=== PATIENT | male | born 1950 | race Caucasian/White ===

== ENCOUNTER → 2017-11-25 | Outpatient (CLI) | payer OTHER ==
[~2017-11-25] MED LIST: ARTH650T6 PO; ATOR20TA15 PO; BIOF1TAB PO; CITA10TA4 PO; FINA5TAB2 PO; FISH100020 PO; LOSA100T PO; MULT-65 PO; OMEP40CA2 PO
[2017-11-25 11:39] LABS: AUTOMATED NEUTROPHIL # 4.2 TH/MM3 (1.8-7.7); BASOPHIL % 0.2 % (0.0-2.0); EOSINOPHIL # 0.2 TH/MM3 (0-0.4); EOSINOPHIL % 3.5 % (0.0-4.0); HEMATOCRIT 39.7 % (39.0-51.0); HEMOGLOBIN 13.2 GM/DL (13.0-17.0); LYMPH % 18.1 % (9.0-44.0); LYMPHOCYTE # 1.1 TH/MM3 (1.0-4.8); MEAN CELL VOLUME 87.5 FL (80.0-100.0); MEAN CORPUSCULAR HEMOGLOBIN 29.1 PG (27.0-34.0); MEAN CORPUSCULAR HGB CONC 33.3 % (32.0-36.0); MEAN PLATELET VOLUME 7.8 FL (7.0-11.0); MONO % 9.4 % (0.0-8.0); MONOCYTE # 0.6 TH/MM3 (0-0.9); NEUT % 68.8 % (16.0-70.0); PLATELET COUNT 265 TH/MM3 (150-450); RED BLOOD COUNT 4.54 MIL/MM3 (4.50-5.90); RED CELL DISTRIBUTION WIDTH 15.6 % (11.6-17.2); WHITE BLOOD COUNT 6.1 TH/MM3 (4.0-11.0)
[2017-11-25 11:41] LABS: BILIRUBIN, URINE NEG (NEG); BLOOD, URINE NEG (NEG); GLUCOSE,URINE NEG (NEG); HYALINE CAST, URINE 2 /lpf (RARE); KETONE, URINE NEG (NEG); MUCUS URINE FEW /lpf (OCC); NITRITE,URINE NEG (NEG); PH, URINE 5.5 (5.0-8.5); URIC ACID CRYSTALS, URINE FEW /hpf; URINE COLOR YELLOW (YELLW/STRAW); URINE LEUKOCYTE ESTERASE NEG (NEG)
[2017-11-25 11:44] LABS: PROTHROMBIN TIME - PATIENT 10.4 SEC (9.8-11.6)
--- NOTE | 2017-11-25 11:52 | EKG ---
Date Performed: 11/25/2017 Time Performed: 11:08:25 PTAGE: 67 years EKG: Sinus rhythm NORMAL ECG NO PREVIOUS TRACING DOCTOR: Denys Velasco Interpretating Date/Time 11/25/2017 11:51:34
[2017-11-25 12:07] LABS: ALBUMIN 3.8 GM/DL (3.4-5.0); AST (GOT) 18 U/L (15-37); BICARBONATE 27.7 MEQ/L (21.0-32.0); BLOOD UREA NITROGEN 15 MG/DL (7-18); CALCIUM 9.5 MG/DL (8.5-10.1); CHLORIDE 106 MEQ/L (98-107); CREATININE 0.68 MG/DL (0.60-1.30); GLOMERULAR FILTRATION RATE 117 ML/MIN (>89); GLUCOSE,FASTING 92 MG/DL (74-99); SODIUM (NA) 141 MEQ/L (136-145)
[2017-11-25 12:08] LABS: ALT (GPT) 30 U/L (12-78)
--- NOTE | 2017-11-25 12:08 | RADRPT ---
EXAM DATE/TIME: 11/25/2017 11:40 [place] COMPARISON: No previous studies available for comparison. INDICATIONS : Evaluate for pneumonia, pneumothorax or communicable disease. Preop chest for sigmoid colectomy, colo stomy closure and ileostomy on 11/27/17 MEDICAL HISTORY : Hyperparathyroidism. SURGICAL HISTORY : Colostomy. ENCOUNTER: Initial ACUITY: 1 day PAIN SCORE: 0/10 LOCATION: Bilateral chest FINDINGS: PA and lateral views of the chest is obtained. Moderate-sized hiatal hernia. Scoliosis. Left basilar atelectasis. The cardiomediastinal contours are unremarkable. Osseous structures are intact. CONCLUSION: 1. Left basilar atelectasis. 2. Moderate-sized hiatal hernia. Richard Erickson MD on November 25, 2017 at 12:05 Board Certified Radiologist. This report was verified electronically.
[2017-11-25 12:10] LABS: ALKALINE PHOSPHATASE 98 U/L (45-117); TOTAL BILIRUBIN ADULT 0.5 MG/DL (0.2-1.0); TOTAL PROTEIN 7.7 GM/DL (6.4-8.2)
== END ==
LOC: CPRE 10:39
PROVIDERS: ATTEND Colon & Rectal Surgery
DX: Z01.812 Encounter for preprocedural laboratory examination (principal); Z01.811 Encounter for preprocedural respiratory examination; Z01.810 Encounter for preprocedural cardiovascular examination; K94.03 Colostomy malfunction
CPT/HCPCS: 36415; 71046; 80053; 81001; 85025; 85610; 85730; 86850; 86900; 86901; 93005

== ENCOUNTER 2017-11-27 09:59 | Inpatient (IN) | payer OTHER, MEDICARE ==
[~2017-11-27] VITALS: Ht 175.3 cm; Wt 71.9 kg
[2017-11-27] MEDS ORDERED: POVIDONE IODINE 5% (ANTISEPSIS KIT) 4 APPLICATIONS EACH NARE PRN (10:30)
[2017-11-27] MEDS ORDERED: SODIUM CHLORID 0.9% 500 ML IV PRN (10:30)
[2017-11-27] MEDS ORDERED: LACTATED RINGER'S 1000 ML IV PRN (10:30)
[2017-11-27] MEDS ORDERED: INSULIN HUMAN REGULAR 1,000 UNITS/10 ML VIAL SQ PRN (10:30)
[2017-11-27] MEDS ORDERED: METOPROLOL TARTRATE 25 MG TAB PO PRN (10:30)
[2017-11-27] MEDS ORDERED: CHLORHEXIDINE GLUCONATE 2 % 1 PACK (2 CLOTHS) TOPICAL PRN (10:30)
[2017-11-27] MEDS ORDERED: ALVIMOPAN 12 MG CAPSULE - On Call PO SCH (10:30)
[2017-11-27] MEDS ORDERED: METRONIDAZOLE 500 MG/100 ML ISONTONIC SOLN IV SCH (10:45)
[2017-11-27] MEDS ORDERED: ceFAZolin 1,000 MG/NS 100 ML IV SCH ×2 (10:45)
[2017-11-27] MEDS ORDERED: DEXT 5%-NACL 0.9% 1000 ML INJ 1,000 ML IV SCH (10:45)
[2017-11-27] MEDS ORDERED: ceFAZolin INJ 1,000 MG VIAL ONE (10:49)
[2017-11-27] MEDS ORDERED: BUPIVACAINE HCL PF 0.5% 30 ML VIAL ONE (12:00)
--- NOTE | 2017-11-27 14:03 | MP ---
cc: James Hampton DO DATE OF OPERATION: 11/27/2017 DATE OF PROCEDURE: 11/27/2017 PREOPERATIVE DIAGNOSIS: Diverticular disease. POSTOPERATIVE DIAGNOSIS: Diverticular disease. PROCEDURE PERFORMED: Cystoscopy, bilateral ureteral catheter placement. SURGEON: James Hampton DO ANESTHESIA: General endotracheal tube. FLUIDS: 500 mL crystalloid. ESTIMATED BLOOD LOSS: None. COMPLICATIONS: None. He tolerated the procedure well. DRAINS: Two bilateral 5-Botswanan open-ended catheters and a 16-Botswanan Boland. DESCRIPTION OF PROCEDURE: Request was made for bilateral ureteral catheter insertion per Dr. Serna. The patient was brought to the operating room and placed in the dorsal lithotomy position. He was prepped and draped in the usual sterile fashion, received preprocedure antibiotics, general endotracheal tube anesthesia was administered and he was placed in the dorsal lithotomy position. A 22-Botswanan cystoscope was inserted in the bladder. Large coapting prostatic lobes were identified. There was some sand within the bladder consistent with possible history of outlet obstruction. Left ureteral orifice was identified, a 5-B[place]wanan catheter was inserted into the left ureteral orifice without difficulty. A 0.35 Sensor wire was then passed through the open-ended catheter up into the kidney with easy passage of the open-ended catheter. This was again repeated on the right side without difficulty. A Boland was inserted and the catheters were secured to the Boland. He tolerated the procedure well. James Hampton DO SWT/KD , 01:46 PM , 02:02 PM
[2017-11-27] MEDS ORDERED: SUGAMMADEX SODIUM 200 MG/2 ML VIAL IV PUSH ONE (15:41)
[2017-11-27] MEDS ORDERED: POTASSIUM CHLOR 40 MEQ PREMIX 100 ML IV PRN (16:00)
[2017-11-27] MEDS ORDERED: Post-op Orders (for Pharmacy) XX ONE (16:00)
[2017-11-27] MEDS ORDERED: BENZOCAINE 6 MG/MENTHOL 10 MG LOZENGE BUCCAL PRN (16:00)
[2017-11-27] MEDS ORDERED: POTASSIUM CHLOR 20 MEQ PREMIX 100 ML IV PRN (16:00)
[2017-11-27] MEDS ORDERED: ACETAMINOPHEN/HYDROcodone 325 MG/5 MG TAB PO PRN ×2 (16:00)
[2017-11-27] MEDS ORDERED: ENALAPRILAT 1.25 MG/ML VIAL IV PUSH PRN (16:00)
[2017-11-27] MEDS: PCA - TOTAL MG MORPHINE DELIVERED PER SHIFT SCH ×2 (16:00→21:15)
[2017-11-27] MEDS ORDERED: SODIUM CHLORIDE 0.9% FLUSH 10 ML FLUSH IV FLUSH PRN (16:00)
[2017-11-27] MEDS ORDERED: NALOXONE HCL 0.4 MG/ML AMP IV PUSH PRN (16:00)
[2017-11-27] MEDS ORDERED: *MEPERIDINE 25 MG INJ VIAL PERIprocedural Use ONLY ONE (16:10)
[2017-11-27] MEDS ORDERED: MIDAZOLAM HCL 2 MG/2 ML VIAL ONE (16:13)
[2017-11-27] MEDS ORDERED: DO NOT ADM ANY ANTICOAGULANT DRUGS PRN (16:15)
[2017-11-27] MEDS ORDERED: MORPHINE SULFATE 8 MG/ML INJ ONE (16:30)
[2017-11-27] MEDS: MORPHINE SULFATE 30 MG/30 ML PCA IV SCH (16:40)
[2017-11-27] MEDS: D5-LR + KCL 20 MEQ INJ 1,000 ML IV SCH ×3 (16:40→21:19)
[2017-11-27] MEDS ORDERED: *morphine SULFATE 4 MG/ML PERIprocedure ONLY ONE ×2 (17:00→18:01)
--- NOTE | 2017-11-27 17:07 | MP ---
cc: Cristofer Merritt MD, Renee Donohoe,Shaun BRAMBILA DATE OF OPERATION: 11/27/2017 DATE OF PROCEDURE: 11/27/2017 PREOPERATIVE DIAGNOSIS: Colostomy, Bam pouch. POSTOPERATIVE DIAGNOSIS: Colostomy, Bam pouch. PROCEDURE PERFORMED: Rectosigmoidectomy with closure of colostomy with low anterior resection. ANESTHESIA: General endotracheal. SURGEON: Cristofer Merritt MD COLLECTIONS MANAGER: Dr. Leslie. ESTIMATED BLOOD LOSS: 100 mL. OPERATING TIME: 2 hours and 10 minutes. OPERATIVE FINDINGS: This patient underwent an emergency colectomy for a sigmoid volvulus about 4 months ago in [place]. He tolerated the procedure well, but developed 2 small wounds infections, 1 near his colostomy, the other in the upper part of his abdomen. Other than that, he came to [place] for closure of his colostomy and Bam pouch. His surgery was done by Dr. Rodriguez and Dr. De La Rosa in [place]. Exploration of the abdominal cavity revealed that the liver was palpably normal, as was remainder of the colon and the small bowel. The cecum was quite high in the right upper quadrant and some of the terminal ileum was stuck in the pelvis, but was able to be dissected free of that. There was a small portion of the mid portion of the ileum that had a serosal split about 3 cm long and this was closed longitudinally with interrupted seromuscular Vicryl sutures. This was a fairly good length Bam pouch, probably 18 cm long. The superior hemorrhoidal vessels had not been taken and a portion of the rectum and sigmoid at of the Bam pouch was resected and the distal portion of the sigmoid was resected. The descending colon and sigmoid was mobilized up to but not including the splenic flexure. A full left colectomy was not needed. A colorectal anastomosis was done with an Ethicon 29 EEA stapling device. OPERATIVE TECHNIQUE: The patient was placed on the table in the supine position. After adequate general endotracheal anesthesia, the legs were then placed in the perineal lithotomy position and the abdomen and perineum were prepped and draped in the usual manner after closing the mucosa of the colostomy with a running 3-0 Vicryl suture. The patient was prepped and draped in the usual manner and a midline incision was made from the xiphoid to the pubis in his previous midline incision and taken down through the linea alba and the peritoneal cavity was entered with the above-mentioned findings. There were adhesions to the anterior abdominal wall, both of small bowel and omentum, and these were taken down with electrocautery. The interloop small bowel adhesions were also divided. Next, our attention was turned to the Bam pouch, rectal stump. There was a Prolene suture present which was trimmed off. The bulk of the mesentery, including the inferior mesenteric artery and superior hemorrhoidal vessels, were all intact and only the sigmoidal branches had been divided. Dr. James Hampton had previously placed bilateral ureteral catheters in both ureters were identified and protected at all times. The sigmoid colostomy was taken down with a transverse elliptical incision around the stoma and subcutaneous tissue and the colostomy was mobilized from the abdominal wall. Next, the sigmoid and descending colon was mobilized along its peritoneal reflection up to but not including the splenic flexure. The superior hemorrhoidal vessels were taken doubly clamping, ligating. The retrorectal space was entered and dissection was taken posteriorly to the pelvic floor. Lateral pelvic peritoneum was incised bilaterally down to the cul-de-sac and then the cul-de-sac was divided, dividing the peritoneum anteriorly and mobilizing the anterior rectum to allow passage of the EEA instrument easily. Once this was done, the mesorectum was clamped, cut, and ligated with 0 Vicryl ligatures and the upper rectum was identified and cleared of the mesorectum. A right angle Zafar clamp was then used and the bowel was divided successively and then placing a 2-0 Prolene sewn pursestring in the rectal stump. Once this piece of bowel was divided, the specimen was removed from the table. Next, our attention was turned to the sigmoid colon and because the quality of the colon was good without any diverticular disease, although the size was somewhat small, we elected to use the sigmoid colon for the anastomosis rather than mobilizing the splenic flexure and the transverse colon. The mesentery of the sigmoid colon just proximal to the colostomy was clamped, cut, and ligated and the sigmoid colon was cleared and another 2-0 Prolene pursestring was placed in the sigmoid colon. The anvil of the 29 Ethicon EEA instrument was placed in the proximal bowel and the pursestring was tied. Dr. Leslie then went below and placed the instrument transanally and the distal pursestring was tied and the instrument was connected, closed and fired, creating the circular anastomosis. There was no tension on the anastomosis and the blood supply was excellent. Dr. Leslie then did proctosigmoidoscopy examination, insufflating air into the rectum with saline solution in the pelvis. Initially, there were a few air bubbles but then there were no air bubbles under moderate air tension. The anastomosis was inspected carefully circumferentially and was intact. There was no tension on the anastomosis and the blood supply was excellent. Once this was done, the pelvis and abdominal cavity was irrigated thoroughly with approximately 2 liters of saline solution and aspirated dry. A 10 flat Sanju drain was placed in the retrorectal space and brought out through a right lower quadrant separate stab wound. The small bowel was replaced into the abdominal cavity in an design director manner and then the fascial edges were mobilized because of the previous incision and fibrosis and a large calcification in the upper abdominal wound was excised with electrocautery. Once this was done, we closed the colostomy site, closing the posterior rectus sheath vertically with a simple running single stranded #1 PDS and then the anterior rectus sheath was closed with a single strand #1 PDS as well again vertically. Next, the midline abdominal incision was closed with a double stranded #1 PDS from the top and the bottom and then these were tied together. Once this was done, the subcutaneous tissue of both wounds was irrigated thoroughly with saline solution and aspirated dry and the skin was closed with skin hanna since he has had 2 previous areas of wound infection. Dressings were applied. Sponge, needle and instrument counts were reported as correct. The estimated blood loss was 100 mL. Operating time was 2 hours and 10 minutes. MD MEIR Morales/NAVID , 04:19 PM , 05:06 PM
[2017-11-27 17:36] LABS: BASOPHIL % 0.2 % (0.0-2.0); EOSINOPHIL % 0.1 % (0.0-4.0); HEMATOCRIT 37.6 % (39.0-51.0); HEMOGLOBIN 12.3 GM/DL (13.0-17.0); LYMPH % 7.4 % (9.0-44.0); LYMPHOCYTE # 1.2 TH/MM3 (1.0-4.8); MEAN CELL VOLUME 87.9 FL (80.0-100.0); MEAN CORPUSCULAR HEMOGLOBIN 28.7 PG (27.0-34.0); MEAN CORPUSCULAR HGB CONC 32.6 % (32.0-36.0); MEAN PLATELET VOLUME 7.9 FL (7.0-11.0); MONO % 6.3 % (0.0-8.0); PLATELET COUNT 293 TH/MM3 (150-450); RED BLOOD COUNT 4.28 MIL/MM3 (4.50-5.90); RED CELL DISTRIBUTION WIDTH 15.8 % (11.6-17.2); WHITE BLOOD COUNT 16.2 TH/MM3 (4.0-11.0)
[2017-11-27 17:53] LABS: BICARBONATE 20.2 MEQ/L (21.0-32.0); CALCIUM 8.8 MG/DL (8.5-10.1); CREATININE 0.62 MG/DL (0.60-1.30)
[2017-11-27] MEDS: METOCLOPRAMIDE HCL 10 MG/2 ML VIAL IVS SCH (18:07)
[2017-11-27 20:30] VITALS: BP 141/72; PULSE 97; PULSE 98; RESP 16; TEMP 98; O2SAT 93
[2017-11-27] MEDS: ceFAZolin 2 GM PREMIX 50 ML IV SCH (21:00)
[2017-11-27] MEDS ORDERED: ZOLPIDEM TARTRATE 5 MG TAB PO PRN (21:00)
[2017-11-27] MEDS: SODIUM CHLORIDE 0.9% FLUSH 10 ML FLUSH IV FLUSH SCH (21:32)
[2017-11-27] MEDS: ATORVASTATIN 20 MG TAB PO SCH (21:32)
[2017-11-27] MEDS: metroNIDAZOLE 500 MG INJ 100 ML IV SCH (21:32)
[2017-11-28] VITALS (16 sets, daily range): BP systolic 129–164; BP diastolic 70–82; PULSE 90–104; RESP 16–18; TEMP 97.4–99.1; O2SAT 94–97
[2017-11-28] MEDS: D5-LR + KCL 20 MEQ INJ 1,000 ML IV SCH ×3 (04:13→20:26)
[2017-11-28] MEDS: ceFAZolin 2 GM PREMIX 50 ML IV SCH ×2 (05:00→11:31)
[2017-11-28] MEDS: metroNIDAZOLE 500 MG INJ 100 ML IV SCH ×2 (05:26→12:17)
[2017-11-28] MEDS: PCA - TOTAL MG MORPHINE DELIVERED PER SHIFT SCH ×4 (05:26→20:35)
[2017-11-28] MEDS: METOCLOPRAMIDE HCL 10 MG/2 ML VIAL IVS SCH ×5 (05:27→23:28)
[2017-11-28] MEDS: ALVIMOPAN 12 MG CAPSULE - Post-op dosing PO SCH ×2 (08:43→20:21)
[2017-11-28] MEDS: PANTOPRAZOLE SODIUM 40 MG VIAL IVP SCH (08:43)
[2017-11-28] MEDS: CITALOPRAM HYDROBROMIDE 20 MG TAB PO SCH (08:44)
[2017-11-28] MEDS: LOSARTAN 50 MG TAB PO SCH (08:44)
[2017-11-28] MEDS: FINASTERIDE 5 MG TAB PO SCH (08:45)
[2017-11-28 10:29] LABS: AUTOMATED NEUTROPHIL # 10.1 TH/MM3 (1.8-7.7); BASOPHIL % 0.3 % (0.0-2.0); EOSINOPHIL % 0.1 % (0.0-4.0); HEMATOCRIT 36.1 % (39.0-51.0); MEAN CORPUSCULAR HEMOGLOBIN 28.6 PG (27.0-34.0); MEAN CORPUSCULAR HGB CONC 33.3 % (32.0-36.0); MEAN PLATELET VOLUME 7.6 FL (7.0-11.0); MONO % 12.2 % (0.0-8.0); MONOCYTE # 1.5 TH/MM3 (0-0.9); NEUT % 79.4 % (16.0-70.0); PLATELET COUNT 317 TH/MM3 (150-450); RED BLOOD COUNT 4.19 MIL/MM3 (4.50-5.90); RED CELL DISTRIBUTION WIDTH 15.8 % (11.6-17.2); WHITE BLOOD COUNT 12.7 TH/MM3 (4.0-11.0)
[2017-11-28 10:51] LABS: BICARBONATE 25.7 MEQ/L (21.0-32.0); CALCIUM 8.8 MG/DL (8.5-10.1); CREATININE 0.63 MG/DL (0.60-1.30)
[2017-11-28] MEDS ORDERED: HEPARIN SODIUM - SQ 10,000 UNITS/ML VIAL SQ SCH (15:00)
--- NOTE | 2017-11-28 16:25 | HHI.PR ---
Subjective Remarks No N or V. No BMs. Some pain. Objective Vital Signs Date Time Temp Pulse Resp B/P (MAP) Pulse Ox O2 Delivery O2 Flow Rate FiO2 11/28/17 11:00 98.5 98 16 133/70 (91) 97 11/28/17 08:05 98.8 92 18 129/72 (91) 95 11/28/17 07:15 Nasal Cannula 3.00 11/28/17 05:26 18 11/28/17 04:00 97.4 92 18 139/76 (97) 94 11/28/17 00:00 97.7 97 16 158/82 (107) 94 11/28/17 00:00 98 11/27/17 20:45 97 16 144/73 (96) 95 Nasal Cannula 2 11/27/17 20:30 Nasal Cannula 3.00 11/27/17 20:30 93 Nasal Cannula 3.00 11/27/17 20:30 97 11/27/17 20:30 16 11/27/17 20:30 98.0 98 16 141/72 (95) 93 11/27/17 19:30 97 16 128/72 (90) 96 Nasal Cannula 2 11/27/17 18:30 97 16 121/71 (88) 96 Nasal Cannula 2 11/27/17 18:00 95 16 137/74 (95) 95 Nasal Cannula 2 11/27/17 17:30 98.0 92 18 131/63 (85) 95 Nasal Cannula 2 11/27/17 17:15 90 18 138/63 (88) 97 Nasal Cannula 2 11/27/17 17:00 87 19 141/70 (93) 97 Nasal Cannula 2 11/27/17 16:45 86 18 143/67 (92) 95 Nasal Cannula 2 11/27/17 16:40 18 11/27/17 16:30 89 19 165/76 (105) 96 Nasal Cannula 2 I/O 11/27/17 11/27/17 11/27/17 11/28/17 11/28/17 11/28/17 07:00 15:00 23:00 07:00 15:00 23:00 Intake Total 4450 ml 1342 ml 150 ml Output Total 915 ml 800 ml Balance 3535 ml 542 ml 150 ml Intake Oral 30 ml IV Total 2150 ml 1312 ml 150 ml Other 2300 ml Output Urine Total 625 ml 750 ml Drainage Total 190 ml 50 ml Estimated Blood Loss 100 ml # Bowel Movements 0 Result Diagram: 11/28/17 1009 11/28/17 1009 Objective Remarks VS-S Abd: flat,dressings dry I&Os and labs OK Assessment and Plan Assessment and Plan Stble POD#[address] [place] [address] D/C Telemetry D/C ureteral catheter D/C serrato tomorrow Remove dressing tomorrow D/C DATA CONVERSION ANALYST tomorrow. Cristofer Merritt MD Nov 28, 2017 16:25
[2017-11-28] MEDS: ATORVASTATIN 20 MG TAB PO SCH (20:21)
[2017-11-28] MEDS: SODIUM CHLORIDE 0.9% FLUSH 10 ML FLUSH IV FLUSH SCH (20:29)
[2017-11-28] MEDS: MORPHINE SULFATE 30 MG/30 ML PCA IV SCH (20:31)
[2017-11-28] MEDS ORDERED: ALVIMOPAN 12 MG CAPSULE PO SCH (21:00)
[2017-11-29] MEDS: D5-LR + KCL 20 MEQ INJ 1,000 ML IV SCH ×4 (02:53→23:47)
[2017-11-29 04:00] VITALS: BP 176/96; PULSE 98; RESP 20; TEMP 98.9; O2SAT 94
[2017-11-29 05:27] LABS: AUTOMATED NEUTROPHIL # 11.3 TH/MM3 (1.8-7.7); BASOPHIL % 0.2 % (0.0-2.0); HEMATOCRIT 34.1 % (39.0-51.0); HEMOGLOBIN 11.5 GM/DL (13.0-17.0); LYMPHOCYTE # 0.8 TH/MM3 (1.0-4.8); MEAN CELL VOLUME 86.1 FL (80.0-100.0); MEAN CORPUSCULAR HGB CONC 33.7 % (32.0-36.0); MEAN PLATELET VOLUME 7.4 FL (7.0-11.0); MONO % 11.4 % (0.0-8.0); MONOCYTE # 1.6 TH/MM3 (0-0.9); NEUT % 82.4 % (16.0-70.0); PLATELET COUNT 288 TH/MM3 (150-450); RED BLOOD COUNT 3.96 MIL/MM3 (4.50-5.90); WHITE BLOOD COUNT 13.7 TH/MM3 (4.0-11.0)
[2017-11-29 05:40] LABS: BICARBONATE 28.8 MEQ/L (21.0-32.0); CALCIUM 8.7 MG/DL (8.5-10.1); CREATININE 0.58 MG/DL (0.60-1.30)
[2017-11-29] MEDS: METOCLOPRAMIDE HCL 10 MG/2 ML VIAL IVS SCH ×4 (06:40→23:47)
[2017-11-29] MEDS: PCA - TOTAL MG MORPHINE DELIVERED PER SHIFT SCH ×3 (06:48→20:45)
[2017-11-29 08:00] VITALS: BP 158/85; PULSE 96; RESP 17; TEMP 98.2; O2SAT 93
[2017-11-29] MEDS: LOSARTAN 50 MG TAB PO SCH (08:57)
[2017-11-29] MEDS: FINASTERIDE 5 MG TAB PO SCH (08:57)
[2017-11-29] MEDS: ALVIMOPAN 12 MG CAPSULE - Post-op dosing PO SCH ×2 (08:57→20:44)
[2017-11-29] MEDS: PANTOPRAZOLE SODIUM 40 MG VIAL IVP SCH (08:58)
[2017-11-29] MEDS: CITALOPRAM HYDROBROMIDE 20 MG TAB PO SCH (08:58)
[2017-11-29] MEDS: SODIUM CHLORIDE 0.9% FLUSH 10 ML FLUSH IV FLUSH SCH ×2 (09:02→20:44)
[2017-11-29 12:00] VITALS: BP 155/84; PULSE 94; RESP 18; TEMP 98.8; O2SAT 92
[2017-11-29 16:00] VITALS: BP 163/87; PULSE 94; RESP 17; TEMP 98.3; O2SAT 94
[2017-11-29] MEDS: HEPARIN SODIUM - SQ 10,000 UNITS/ML VIAL SQ SCH (16:00)
[2017-11-29 20:00] VITALS: BP 172/81; PULSE 93; RESP 18; TEMP 98; O2SAT 91
[2017-11-29] MEDS: ATORVASTATIN 20 MG TAB PO SCH (20:45)
[2017-11-30] VITALS: BP 176/84; PULSE 94; RESP 18; TEMP 98.1; O2SAT 91
[2017-11-30 04:00] VITALS: BP 154/80; PULSE 90; RESP 18; TEMP 98.1; O2SAT 91
[2017-11-30] MEDS: HEPARIN SODIUM - SQ 10,000 UNITS/ML VIAL SQ SCH ×2 (04:59→16:02)
[2017-11-30] MEDS: PCA - TOTAL MG MORPHINE DELIVERED PER SHIFT SCH ×3 (04:59→20:23)
[2017-11-30] MEDS: METOCLOPRAMIDE HCL 10 MG/2 ML VIAL IVS SCH ×3 (05:01→18:00)
[2017-11-30 08:00] VITALS: BP 168/85; PULSE 88; RESP 17; TEMP 97.7; O2SAT 94
[2017-11-30] MEDS: SODIUM CHLORIDE 0.9% FLUSH 10 ML FLUSH IV FLUSH SCH ×2 (09:00→20:23)
[2017-11-30] MEDS: PANTOPRAZOLE SODIUM 40 MG VIAL IVP SCH (09:28)
[2017-11-30] MEDS: LOSARTAN 50 MG TAB PO SCH (09:29)
[2017-11-30] MEDS: FINASTERIDE 5 MG TAB PO SCH (09:29)
[2017-11-30] MEDS: CITALOPRAM HYDROBROMIDE 20 MG TAB PO SCH (09:29)
[2017-11-30] MEDS: ALVIMOPAN 12 MG CAPSULE - Post-op dosing PO SCH ×2 (09:30→20:23)
[2017-11-30 12:00] VITALS: BP 164/93; PULSE 86; RESP 16; TEMP 98.3; O2SAT 92
[2017-11-30] MEDS: D5-LR + KCL 20 MEQ INJ 1,000 ML IV SCH (12:39)
[2017-11-30 16:00] VITALS: BP 154/83; PULSE 84; RESP 17; TEMP 98.7; O2SAT 92
[2017-11-30 20:00] VITALS: BP 160/71; PULSE 94; RESP 17; TEMP 98.5; O2SAT 91
[2017-11-30] MEDS: ATORVASTATIN 20 MG TAB PO SCH (20:22)
[2017-12-01] VITALS: BP 149/82; PULSE 91; RESP 17; TEMP 98.6; O2SAT 93
[2017-12-01] MEDS: D5-LR + KCL 20 MEQ INJ 1,000 ML IV SCH (00:27)
[2017-12-01] MEDS: PCA - TOTAL MG MORPHINE DELIVERED PER SHIFT SCH (06:00)
[2017-12-01] MEDS: METOCLOPRAMIDE HCL 10 MG/2 ML VIAL IVS SCH ×3 (06:00→11:19)
[2017-12-01] MEDS: HEPARIN SODIUM - SQ 10,000 UNITS/ML VIAL SQ SCH (06:09)
[2017-12-01 08:00] VITALS: BP 164/81; PULSE 78; RESP 18; TEMP 98; O2SAT 93
[2017-12-01] MEDS: CITALOPRAM HYDROBROMIDE 20 MG TAB PO SCH (08:51)
[2017-12-01] MEDS: ALVIMOPAN 12 MG CAPSULE - Post-op dosing PO SCH (08:51)
[2017-12-01] MEDS: FINASTERIDE 5 MG TAB PO SCH (08:52)
[2017-12-01] MEDS: LOSARTAN 50 MG TAB PO SCH (08:53)
[2017-12-01] MEDS: PANTOPRAZOLE SODIUM 40 MG VIAL IVP SCH (08:53)
[2017-12-01] MEDS: SODIUM CHLORIDE 0.9% FLUSH 10 ML FLUSH IV FLUSH SCH (08:53)
--- NOTE | 2017-12-01 09:52 | HHI.DCPOC ---
Discharge Care Plan Diagnosis: (1) Colostomy closure Your Health Problems Are: Incision/Drains Appetite Changes Irregular Bowel Function Exercise Tolerance Loss of Movements Goals to Promote Your Health * To prevent worsening of your condition and complications * To maintain your health at the optimal level Directions to Meet Your Goals Take your medications as prescribed Follow your dietary instruction Follow activity as directed Keep your appointments as scheduled Take your immunizations and boosters as scheduled If your symptoms worsen call your PCP, if no PCP go to Urgent Care Center or Emergency Room Smoking is Dangerous to Your Health. Avoid second hand smoke Call the 24-hour hour crisis hotline for domestic abuse at Cristofer Merritt MD Dec 01, 2017 09:52
--- NOTE | 2017-12-01 09:58 | HHI.PR ---
Subjective Remarks No N or V. Couple loose BMs. Denies pain. Not using pain meds. Ambulating with braces and crutches. Objective Vital Signs Date Time Temp Pulse Resp B/P (MAP) Pulse Ox O2 Delivery O2 Flow Rate FiO2 12/01/17 08:00 98.0 78 18 164/81 (108) 93 12/01/17 00:00 98.6 91 17 149/82 (104) 93 11/30/17 21:43 Room Air 11/30/17 20:00 98.5 94 17 160/71 (100) 91 11/30/17 16:00 98.7 84 17 154/83 (106) 92 11/30/17 12:00 98.3 86 16 164/93 (116) 92 I/O 11/30/17 11/30/17 11/30/17 12/01/17 12/01/17 12/01/17 07:00 15:00 23:00 07:00 15:00 23:00 Intake Total 1240 ml 450 ml 240 ml 1240 ml Output Total 500 ml 450 ml 391 ml Balance 740 ml 450 ml -210 ml 849 ml Intake Oral 240 ml 240 ml 240 ml IV Total 1000 ml 450 ml 1000 ml Output Urine Total 400 ml 350 ml 300 ml Stool Total 1 ml Drainage Total 100 ml 100 ml 90 ml # Voids 1 # Bowel Movements 0 1 0 Result Diagram: 11/29/17 0503 11/29/17 0503 Objective Remarks VS-S Abd: flat, some mild redness. Prepped with Betadine swab and sterile Q tip. Serous drainage only. I&Os-OK Assessment and Plan Assessment and Plan Stble POD#4 D/C today. Appt for Friday to check wound and remove hanna. Cristofer Merritt MD Dec 01, 2017 09:58
== END 2017-12-01 11:45 | disposition home or self-care (01) | DRG 331 ==
LOC: HSDI 09:59 → HCPC 21:08 → N07B 11-28 19:57
PROVIDERS: ADMIT Colon & Rectal Surgery; ATTEND Colon & Rectal Surgery
PROC: 0WBF0ZZ Excision of Abdominal Wall, Open Approach (ICD-10-PCS; 2017-11-27)
PROC: 0DQB0ZZ Repair Ileum, Open Approach (ICD-10-PCS; 2017-11-27)
PROC: 0DJD8ZZ Inspection of Lower Intestinal Tract, Via Natural or Artificial Opening Endoscopic (ICD-10-PCS; 2017-11-27)
PROC: 0T9880Z Drainage of Bilateral Ureters with Drainage Device, Via Natural or Artificial Opening Endoscopic (ICD-10-PCS; 2017-11-27)
PROC: 0DBN0ZZ Excision of Sigmoid Colon, Open Approach (ICD-10-PCS; principal; 2017-11-27 12:49)
PROC: 0DBP0ZZ Excision of Rectum, Open Approach (ICD-10-PCS; 2017-11-27 12:49)
DX: Z43.3 Encounter for attention to colostomy (principal); G62.9 Polyneuropathy, unspecified; I10 Essential (primary) hypertension; E78.5 Hyperlipidemia, unspecified; K21.9 Gastro-esophageal reflux disease without esophagitis; F32.9 Major depressive disorder, single episode, unspecified; Z86.12 Personal history of poliomyelitis
CPT/HCPCS: 36415; 71046; 80048; 80053; 81001; 85025; 85610; 85730; 86850; 86900; 86901; 88304; 88309; 93005; 94150; C1769; C9113; J0690; J1644; J2175; J2250; J2270; J2765; J3010; J3480; J7120